=== PATIENT | female | born 1940 | race Asian ===

== ENCOUNTER 2018-07-29 09:20 | Inpatient (IN) | payer MEDICARE, OTHER ==
[2018-07-29 10:17] LABS: ADD MAN DIFF? NO
[2018-07-29 10:21] LABS: BASOPHILS % 0.2 % (0.0-2.0); EOSINOPHILS # 0.1 10^3/ul (0.0-0.5); HEMATOCRIT 37.7 % (37.0-47.0); HEMOGLOBIN 12.1 g/dl (12.0-16.0); LYMPHOCYTES # 1.8 10^3/ul (0.8-2.9); LYMPHOCYTES % 36.1 % (15.0-51.0); MEAN CORPUSCULAR HGB CONC 32.1 g/dl (32.0-37.0); MEAN CORPUSCULAR VOLUME 87.3 fl (82.0-101.0); MEAN PLATELET VOLUME 10.3 fl (7.4-10.4); MONOCYTE # 0.4 10^3/ul (0.3-0.9); MONOCYTES % 8.7 % (0.0-11.0); NEUTROPHIL # 2.7 10^3/ul (1.6-7.5); NEUTROPHILS % 53.6 % (39.0-77.0); PLATELET COUNT 119 10^3/UL (140-415); RED BLOOD COUNT 4.32 10^6/ul (4.20-5.40); RED CELL DISTRIBUTION WIDTH 12.7 % (11.5-14.5)
[2018-07-29 10:36] LABS: UR BACTERIA FEW /HPF (NONE SEEN); UR RBC 0 /HPF (0-5); UR WBC 2 /HPF (0-5)
[2018-07-29 10:40] LABS: ADD UMIC NO; UR ASCORBIC ACID NEGATIVE (NEGATIVE); UR BILIRUBIN (Dip) NEGATIVE (NEGATIVE); UR BLOOD (Dip) NEGATIVE (NEGATIVE); UR CLARITY CLEAR (CLEAR); UR COLOR STRAW (YELLOW); UR GLUCOSE (Dip) 3+ mg/dL (NEGATIVE); UR KETONES (Dip) NEGATIVE (NEGATIVE); UR LEUKOCYTE ESTERASE (Dip) NEGATIVE Leu/ul (NEGATIVE); UR NITRITE (Dip) NEGATIVE (NEGATIVE); UR SPECIFIC GRAVITY (Dip) 1.002 (1.003-1.030); UR TOTAL PROTEIN (Dip) NEGATIVE (NEGATIVE); UR UROBILINOGEN (Dip) NEGATIVE (NEGATIVE)
[2018-07-29] MEDS: CEFEPIME 2GM/50 ML (PMX) 50 ML IVPB (10:41)
[2018-07-29] MEDS: SODIUM CHLORIDE 0.9% 1L BAG IV* (10:43)
[2018-07-29 10:57] LABS: ALANINE AMINOTRANSFERASE 12 IU/L (13-69); ALBUMIN 3.9 g/dl (3.3-4.9); ALBUMIN/GLOBULIN RATIO 1.21; ALKALINE PHOSPHATASE 77 IU/L (42-121); ANION GAP 11 (5-13); ASPARTATE AMINO TRANSFERASE 26 IU/L (15-46); BILIRUBIN,INDIRECT 0.2 mg/dl (0-1.1); BILIRUBIN,TOTAL 0.2 mg/dl (0.2-1.3); BLOOD UREA NITROGEN 31 mg/dl (7-20); CALCIUM 9.6 mg/dl (8.4-10.2); CARBON DIOXIDE 26 mmol/L (21-31); CHLORIDE 101 mmol/L (97-110); GLUCOSE 216 mg/dl (70-220); POTASSIUM 3.7 mmol/L (3.5-5.1); SODIUM 138 mmol/L (135-144); TOTAL PROTEIN 7.1 g/dl (6.1-8.1)
[2018-07-29 10:58] LABS: INR 0.93; PROTIME 12.6 Sec (11.9-14.9)
[2018-07-29 10:59] LABS: PARTIAL THROMBOPLASTIN TIME 28.1 Sec (23.0-35.0)
[2018-07-29 11:08] LABS: TROPONIN-I < 0.012 ng/ml (0.000-0.120)
[2018-07-29 11:15] LABS: FREE THYROXINE INDEX (Calc) 3.26 ug/ml (0.65-3.89); T3 UPTAKE 35.1 % (23.5-40.5); T4 (THYROXINE) 9.3 ug/dl (5.5-11.0)
[2018-07-29] MEDS: VANCOMYCIN 1 GM (PMX) 250 ML IVPB (12:15)
[2018-07-29] MEDS ORDERED: D5W-0.45 NACL + KCL 20 MEQ 1,000 ML IV (12:58)
[2018-07-29] MEDS ORDERED: ONDANSETRON 4 MG INJ IV ×2 (13:00)
[2018-07-29] MEDS ORDERED: ACETAMINOPHEN 325 MG TAB PO (13:00)
[2018-07-29] MEDS ORDERED: NACL 0.9% 3 ML SYG IV (13:00)
[2018-07-29] MEDS: INSULIN ASPART [NOVOLOG] 3 ML PEN SC ×3 (13:00→21:45)
[2018-07-29] MEDS ORDERED: morphine 4 MG/ML VIAL IV (13:00)
[2018-07-29] MEDS ORDERED: GLUCOSE GEL 15 GRAM TUBE BUCCAL (13:30)
[2018-07-29] MEDS ORDERED: BISACODYL (EC) 5 MG TAB PO (13:30)
[2018-07-29] MEDS ORDERED: GLUCAGON 1 MG INJ IM (13:30)
[2018-07-29] MEDS: SOD CHLORIDE 0.45% 1,000 ML IV ×2 (13:30→16:42)
[2018-07-29] MEDS ORDERED: MAGNESIUM HYDROXIDE 30ML CUP PO (13:30)
[2018-07-29] MEDS ORDERED: DEXTROSE 50% 50 ML SYRINGE IV ×2 (13:30)
[2018-07-29] MEDS ORDERED: GLUCOSE GEL 15 GRAM TUBE PO ×2 (13:30)
[2018-07-29 16:47] LABS: LACTIC ACID 1.7 mmol/L (0.5-2.0)
[2018-07-29] MEDS: CEFTRIAXONE 1 GM/50 ML (PMX) 50 ML IVPB (17:48)
[2018-07-29] MEDS: ACARBOSE 50 MG TAB PO (18:03)
[2018-07-29] MEDS ORDERED: INSULIN GLARGINE [LANTus] (100 UNITS/ML) SYG SC (20:00)
[2018-07-29] MEDS: ARIPIPRAZOLE 2 MG TAB PO (21:00)
[2018-07-29] MEDS: PREGABALIN 75 MG CAP PO (21:00)
[2018-07-29] MEDS: ISOSORBIDE MONONITRATE 20 MG TAB PO (21:00)
[2018-07-29] MEDS: ATORVASTATIN 20 MG TAB PO (21:00)
[2018-07-29] MEDS: INSULIN GLARGINE [LANTus] (100 UNITS/ML) SYG SC (21:39)
[2018-07-30] MEDS: INSULIN ASPART [NOVOLOG] 3 ML PEN SC ×6 (01:00→20:57)
[2018-07-30] MEDS: ACCU-CHEK XX (01:56)
[2018-07-30] MEDS: LEVOTHYROXINE 100 MCG TAB PO (06:45)
[2018-07-30 06:57] LABS: ADD MAN DIFF? NO
[2018-07-30 07:02] LABS: ABNORMAL IP MESSAGE 1; BASOPHILS % 0.2 % (0.0-2.0); EOSINOPHILS % 0.3 % (0.0-7.0); HEMOGLOBIN 11.9 g/dl (12.0-16.0); LYMPHOCYTES # 1.6 10^3/ul (0.8-2.9); LYMPHOCYTES % 12.9 % (15.0-51.0); MEAN CORPUSCULAR HEMOGLOBIN 28.4 pg (29.0-33.0); MEAN CORPUSCULAR HGB CONC 33.1 g/dl (32.0-37.0); MEAN CORPUSCULAR VOLUME 85.9 fl (82.0-101.0); MONOCYTE # 0.7 10^3/ul (0.3-0.9); MONOCYTES % 5.6 % (0.0-11.0); NEUTROPHIL # 9.8 10^3/ul (1.6-7.5); NEUTROPHILS % 80.6 % (39.0-77.0); PLATELET COUNT 95 10^3/UL (140-415); RED BLOOD COUNT 4.19 10^6/ul (4.20-5.40); RED CELL DISTRIBUTION WIDTH 12.7 % (11.5-14.5)
[2018-07-30 07:02] LABS: WHITE BLOOD COUNT 12.2 10^3/ul (4.8-10.8)
[2018-07-30 07:10] LABS: POSITIVE DIFF @See below
[2018-07-30 07:19] LABS: HEMOGLOBIN A1C 7.4 % (0-5.9)
[2018-07-30 07:33] LABS: ANION GAP 10 (5-13); BLOOD UREA NITROGEN 21 mg/dl (7-20); CALCIUM 8.9 mg/dl (8.4-10.2); CARBON DIOXIDE 23 mmol/L (21-31); CHLORIDE 105 mmol/L (97-110); CREATININE 0.86 mg/dl (0.44-1.00); GLUCOSE 87 mg/dl (70-220); MAGNESIUM 1.9 mg/dl (1.7-2.5); PHOSPHORUS 3.1 mg/dl (2.5-4.9); POTASSIUM 4.8 mmol/L (3.5-5.1); SODIUM 138 mmol/L (135-144)
[2018-07-30] MEDS: ACARBOSE 50 MG TAB PO ×3 (07:55→17:05)
[2018-07-30] MEDS: ATENOLOL 25 MG TAB PO (09:00)
[2018-07-30] MEDS: PREGABALIN 75 MG CAP PO ×2 (09:00→20:53)
[2018-07-30] MEDS: FOLIC ACID 1 MG TAB PO (09:00)
[2018-07-30] MEDS: LOSARTAN 25 MG TAB PO (09:00)
[2018-07-30] MEDS: MULTIVIT/CA CARB/B CMPLX/FA TAB PO (09:00)
[2018-07-30] MEDS: DONEPEZIL 10 MG TAB PO (09:00)
[2018-07-30] MEDS: CLOPIDOGREL 75 MG TAB PO (09:00)
[2018-07-30] MEDS: CYANOCOBALAMIN 100 MCG TAB PO (09:00)
[2018-07-30] MEDS: CALCIUM CARBONATE 1.25 GM TAB PO (09:00)
[2018-07-30] MEDS: ISOSORBIDE MONONITRATE 20 MG TAB PO ×2 (09:00→20:53)
[2018-07-30] MEDS: SOD CHLORIDE 0.45% 1,000 ML IV ×2 (09:30→14:36)
[2018-07-30] MEDS: CEFTRIAXONE 1 GM/50 ML (PMX) 50 ML IVPB (17:05)
[2018-07-30] MEDS: ARIPIPRAZOLE 2 MG TAB PO (20:52)
[2018-07-30] MEDS: ATORVASTATIN 20 MG TAB PO (20:53)
[2018-07-30] MEDS: INSULIN GLARGINE [LANTus] (100 UNITS/ML) SYG SC (20:57)
[2018-07-31] MEDS: INSULIN ASPART [NOVOLOG] 3 ML PEN SC ×2 (01:00→05:00)
[2018-07-31] MEDS: ACCU-CHEK XX (02:00)
[2018-07-31] MEDS: SOD CHLORIDE 0.45% 1,000 ML IV ×2 (05:30→13:12)
[2018-07-31 06:12] LABS: ADD MAN DIFF? NO
[2018-07-31 06:16] LABS: WHITE BLOOD COUNT 7.5 10^3/ul (4.8-10.8)
[2018-07-31 06:16] LABS: BASOPHILS % 0.3 % (0.0-2.0); EOSINOPHILS # 0.1 10^3/ul (0.0-0.5); EOSINOPHILS % 0.7 % (0.0-7.0); HEMATOCRIT 33.9 % (37.0-47.0); HEMOGLOBIN 11.3 g/dl (12.0-16.0); LYMPHOCYTES # 1.3 10^3/ul (0.8-2.9); MEAN CORPUSCULAR HEMOGLOBIN 28.4 pg (29.0-33.0); MEAN CORPUSCULAR HGB CONC 33.3 g/dl (32.0-37.0); MEAN CORPUSCULAR VOLUME 85.2 fl (82.0-101.0); MEAN PLATELET VOLUME 10.1 fl (7.4-10.4); MONOCYTE # 0.6 10^3/ul (0.3-0.9); NEUTROPHIL # 5.5 10^3/ul (1.6-7.5); NEUTROPHILS % 73.6 % (39.0-77.0); PLATELET COUNT 109 10^3/UL (140-415); RED BLOOD COUNT 3.98 10^6/ul (4.20-5.40); RED CELL DISTRIBUTION WIDTH 12.7 % (11.5-14.5)
[2018-07-31 06:52] LABS: ANION GAP 5 (5-13); BLOOD UREA NITROGEN 21 mg/dl (7-20); CALCIUM 9.2 mg/dl (8.4-10.2); CARBON DIOXIDE 28 mmol/L (21-31); CHLORIDE 107 mmol/L (97-110); CREATININE 0.99 mg/dl (0.44-1.00); GLUCOSE 122 mg/dl (70-220); POTASSIUM 4.1 mmol/L (3.5-5.1); SODIUM 140 mmol/L (135-144)
[2018-07-31] MEDS: Insulin NOVOLOG SS MILD Algorithm (SS with meals and bedtime) SC ×4 (07:25→20:55)
[2018-07-31] MEDS ORDERED: INSULIN ASPART [NOVOLOG] 3 ML PEN SC (07:25)
[2018-07-31] MEDS: CALCIUM CARBONATE 1.25 GM TAB PO (09:29)
[2018-07-31] MEDS: ACARBOSE 50 MG TAB PO ×3 (09:30→17:34)
[2018-07-31] MEDS: CYANOCOBALAMIN 100 MCG TAB PO (09:31)
[2018-07-31] MEDS: FOLIC ACID 1 MG TAB PO (09:31)
[2018-07-31] MEDS: MULTIVIT/CA CARB/B CMPLX/FA TAB PO (09:31)
[2018-07-31] MEDS: DONEPEZIL 10 MG TAB PO (09:31)
[2018-07-31] MEDS: LOSARTAN 25 MG TAB PO (09:31)
[2018-07-31] MEDS: ISOSORBIDE MONONITRATE 20 MG TAB PO ×2 (09:31→20:55)
[2018-07-31] MEDS: ATENOLOL 25 MG TAB PO (09:32)
[2018-07-31] MEDS: CLOPIDOGREL 75 MG TAB PO (09:32)
[2018-07-31] MEDS: ENOXAPARIN 40 MG/0.4 ML SYG SC (09:34)
[2018-07-31] MEDS: LEVOTHYROXINE 100 MCG TAB PO (09:41)
[2018-07-31] MEDS: PREGABALIN 75 MG CAP PO ×2 (09:41→20:54)
[2018-07-31] MEDS: DOXYCYCLINE 100 MG TAB PO ×2 (13:01→20:54)
[2018-07-31] MEDS: MUPIROCIN 2% 22 GM OINT TOP ×2 (13:01→20:55)
[2018-07-31] MEDS: CEFTRIAXONE 1 GM/50 ML (PMX) 50 ML IVPB (17:34)
[2018-07-31] MEDS: ATORVASTATIN 20 MG TAB PO (20:54)
[2018-07-31] MEDS: ARIPIPRAZOLE 2 MG TAB PO (20:54)
[2018-07-31] MEDS: INSULIN GLARGINE [LANTus] (100 UNITS/ML) SYG SC (21:08)
[2018-08-01] MEDS: ACCU-CHEK XX (02:00)
[2018-08-01] MEDS: LEVOTHYROXINE 100 MCG TAB PO (06:54)
[2018-08-01] MEDS: Insulin NOVOLOG SS MILD Algorithm (SS with meals and bedtime) SC ×2 (07:25→11:52)
[2018-08-01] MEDS: ATENOLOL 25 MG TAB PO (08:47)
[2018-08-01] MEDS: DONEPEZIL 10 MG TAB PO (08:47)
[2018-08-01] MEDS: MULTIVIT/CA CARB/B CMPLX/FA TAB PO (08:47)
[2018-08-01] MEDS: CLOPIDOGREL 75 MG TAB PO (08:47)
[2018-08-01] MEDS: FOLIC ACID 1 MG TAB PO (08:47)
[2018-08-01] MEDS: DOXYCYCLINE 100 MG TAB PO (08:47)
[2018-08-01] MEDS: CYANOCOBALAMIN 100 MCG TAB PO (08:48)
[2018-08-01] MEDS: CALCIUM CARBONATE 1.25 GM TAB PO (08:48)
[2018-08-01] MEDS: ACARBOSE 50 MG TAB PO ×2 (08:48→12:01)
[2018-08-01] MEDS: ISOSORBIDE MONONITRATE 20 MG TAB PO (08:49)
[2018-08-01] MEDS: LOSARTAN 25 MG TAB PO (08:49)
[2018-08-01] MEDS: MUPIROCIN 2% 22 GM OINT TOP (08:50)
[2018-08-01] MEDS: ENOXAPARIN 40 MG/0.4 ML SYG SC (08:57)
[2018-08-01] MEDS: PREGABALIN 75 MG CAP PO (09:08)
[2018-08-01] MEDS: CEPHALEXIN 500 MG CAP PO (13:01)
[2018-08-01] MEDS ORDERED: INSULIN GLARGINE [LANTus] (100 UNITS/ML) SYG SC (20:00)
== END 2018-08-01 16:21 | DRG 871 ==
LOC: E/R 09:20 → TEL 14:22
PROVIDERS: Internal Medicine
DX: A41.9 Sepsis, unspecified organism (principal); G92 Toxic encephalopathy; N39.0 Urinary tract infection, site not specified; N17.9 Acute kidney failure, unspecified; F03.90 Unspecified dementia, unspecified severity, without behavioral disturbance, psychotic disturbance, mood disturbance, and anxiety; E11.649 Type 2 diabetes mellitus with hypoglycemia without coma; E03.9 Hypothyroidism, unspecified; I25.10 Atherosclerotic heart disease of native coronary artery without angina pectoris; I10 Essential (primary) hypertension; Z95.1 Presence of aortocoronary bypass graft; T68.XXXA Hypothermia, initial encounter; Z22.322 Carrier or suspected carrier of Methicillin resistant Staphylococcus aureus; B96.20 Unspecified Escherichia coli [E. coli] as the cause of diseases classified elsewhere
CPT/HCPCS: 36415; 70450; 71045; 80048; 80053; 81003; 82962; 83036; 83605; 83735; 84100; 84436; 84479; 84484; 85025; 85610; 85730; 87040; 87081; 87086; 92526; 92610; 93005; 96365; 96366; 96368; 97116; 97162; 97167; 97530; 99285-25

== ENCOUNTER 2018-11-19 02:44 | Emergency (ER) | payer MEDICARE, OTHER | END 2018-11-19 07:33 | disposition home or self-care (01) | LOC: E/R 02:44 | DX: M54.5 Low back pain (principal); J44.9 Chronic obstructive pulmonary disease, unspecified; I25.10 Atherosclerotic heart disease of native coronary artery without angina pectoris; E11.9 Type 2 diabetes mellitus without complications; Z79.01 Long term (current) use of anticoagulants; Z79.4 Long term (current) use of insulin; Z98.61 Coronary angioplasty status | CPT/HCPCS: 70450; 72131; 99284-25 ==